=== PATIENT | female | born 1980 | race Caucasian/White ===

== ENCOUNTER 2018-08-31 07:17 | Day surgery (SDC) | payer OTHER ==
[~2018-08-31] VITALS: Ht 147.3 cm; Wt 92.7 kg
[2018-08-31 08:01] LABS: HEMATOCRIT 41.2 % (36.0-48.0); MCH 28.8 pg (26.0-34.0); MCV 84.8 fL (80.0-100.0); MEAN PLATELET VOLUME 9.8 fL (7.4-10.4); RBC 4.86 10x6/uL (4.00-5.40); RDW 13.4 % (11.5-14.5)
[2018-08-31] MEDS ORDERED: PEPCID AC20 MG PO (08:50)
[2018-08-31] MEDS ORDERED: LAMICTAL150 M1 PO (08:50)
[2018-08-31] MEDS ORDERED: LINZESS145 MCG PO (08:51)
[2018-08-31] MEDS ORDERED: OMEPRAZOLE20 M1 PO (08:51)
[2018-08-31] MEDS ORDERED: FLUVOXAMINE MAL50 MG PO (08:52)
[2018-08-31 09:04] VITALS: BP 122/56; Ht 147.3 cm; Wt 92.7 kg
--- NOTE | 2018-08-31 11:06 | NUR ---
DC INSTRUCTIONS GIVEN TO MOM. STATES UNDERSTANDING. DC'D IV CATH FULLY INTACT. PT LEFT UNIT VIA WC AT 1100
--- NOTE | 2018-08-31 17:14 | OP ---
PATIENT NAME: ASHLEY CABA MEDICAL RECORD: [id number] :84 LOCATION:[facility] ADMISSION DATE: SURGEON: DAVON RED MD DATE OF OPERATION: 08/31/2018 PROCEDURE: Colonoscopy. REFERRING PHYSICIAN: Dr. Gisele Morales MD INDICATIONS: Ms. Caba is a pleasant 37-year-old woman with a history of severe developmental delay, seizure disorder, who has had symptoms of chronic constipation present since . She has taken Linzess 145 mcg in the past with good results, but she has run out of prescription. She has had no relief of her constipation with laxatives, enemas, and MiraLax. She has had several hospitalizations to treat impactions. On Linzess, she has 1-2 bowel movements daily. Her last colonoscopy was in 2004 and showed mild internal hemorrhoids. Secondary to symptoms of gas, bloating, irritable bowel syndrome with constipation and occasional hematochezia, she presents for outpatient colonoscopy. PREMEDICATIONS: Total IV anesthesia (history of seizure disorder, BMI of 43). PROCEDURE AND FINDINGS: After receiving informed consent, Ms. Caba was placed in left lateral decubitus position, sedated as per anesthesia. After achieving adequate level of sedation, digital rectal exam was performed that showed few external hemorrhoidal tags. No fissures or fistulas. Normal sphincter tone, no palpable rectal masses. The colonoscope was introduced per rectally and advanced to the hepatic flexure. Despite preprocedure enema, there was a copious amount of indigestible food debris, thick liquid stool and semi-formed stool. Secondary to the inadequacy of the prep, I was unable to advance the colonoscope beyond the hepatic flexure. As the colonoscope was withdrawn, careful inspection was made of the hansen of the colon. Overall mucosa had normal vascular and fold pattern. Multiple lavages were performed. No obstructive masses were present. Retroflexion in the rectum showed mild internal hemorrhoids. Ms. Caba tolerated the procedure well, no immediate complications. ASSESSMENT: 1. Completed colonoscopy complet to the hepatic flexure. 2. Inadequate prep. 3. Mild internal hemorrhoids. RECOMMENDATIONS: 1. Recommend continue Linzess 145 mcg daily. 2. Avoid carbonated beverages and excessive amounts of dairy food. 3. Recommend barium enema and complete lower GI study. TRANSINT:[id number] Voice Confirmation ID: [id number] DOCUMENT ID: [id number] OPERATIVE REPORT [id number] ASHLEY CABA TERRI MD at 1714 CC: GISELE MORALES MD [id number] DICTATION DATE: 08/31/18 1026 SENIOR GEOTECHNICAL ENGINEER: 08/31/18 1227 [facility] 08/31/18 [place] [id number] [place] [id number]
== END 2018-08-31 11:00 | disposition home or self-care (01) ==
LOC: D.OPS 07:17
PROVIDERS: Anesthesiology; ATTEND Internal Medicine Gastroenterology
DX: K64.8 Other hemorrhoids (principal); G40.909 Epilepsy, unspecified, not intractable, without status epilepticus; Z01.812 Encounter for preprocedural laboratory examination